=== PATIENT | male | born 1950 | race Caucasian/White ===

== ENCOUNTER → 2016-11-23 | Outpatient (CLI) | payer OTHER, MEDICAID ==
[~2016-11-23] MED LIST: ASCO1500 PO; HYDR-3240 PO; LISI-170 PO; MULT-115 PO; OMNIPAQUE 350 MG/ML, 100ML BOTTLE ONE; [UNRECOGNIZED DRUG - OTHER] PO
== END | disposition home or self-care (01) ==
LOC: CFH 09:08
PROVIDERS: ATTEND Internal Medicine
DX: I35.0 Nonrheumatic aortic (valve) stenosis (principal); I71.4 Abdominal aortic aneurysm, without rupture
CPT/HCPCS: 74174; 82565; Q9967

== ENCOUNTER → 2016-12-04 | Outpatient (CLI) | payer OTHER, MEDICAID ==
[~2016-12-04] MED LIST changes: -OMNIPAQUE 350 MG/ML, 100ML BOTTLE ONE
== END | disposition home or self-care (01) ==
LOC: CFH 07:11
PROVIDERS: ATTEND Surgery Vascular Surgery
DX: I71.4 Abdominal aortic aneurysm, without rupture (principal); N28.1 Cyst of kidney, acquired; I65.23 Occlusion and stenosis of bilateral carotid arteries; K76.89 Other specified diseases of liver
CPT/HCPCS: 76700

== ENCOUNTER → 2016-12-04 | Outpatient (CLI) | payer OTHER, MEDICAID | END | disposition home or self-care (01) | LOC: CVU 09:30 | PROVIDERS: ATTEND Surgery Vascular Surgery | DX: I65.23 Occlusion and stenosis of bilateral carotid arteries (principal); R10.9 Unspecified abdominal pain | CPT/HCPCS: 93880 ==